=== PATIENT | male | born 1975 | race Two or more races ===

== ENCOUNTER 2021-06-11 09:32 | Emergency (ER) | payer MEDICAID, OTHER ==
[~2021-06-11] VITALS: Ht 170.2 cm; Wt 136.1 kg
[2021-06-11] MEDS ORDERED: NEOMYCIN-BACITRACIN-POLYM UNITDOSE PKG TOP OINT TOP ONE (12:45)
[2021-06-11] MEDS ORDERED: TETANUS-DIPTH-ACEL PERTUSSIS 0.5ML SYR Tdap IM ONE (12:45)
[2021-06-11 13:10] VITALS: BP 127/63
[2021-06-11] MEDS ORDERED: ACETAMINOPHEN/CODEINE#3 (300/30mg) TAB PO ONE (13:15)
[2021-06-11] MEDS ORDERED: ONDANSETRON ODT 4 MG TAB PO ONE (13:15)
== END 2021-06-11 13:27 | disposition home or self-care (01) ==
LOC: ER 09:32
DX: T25.221A Burn of second degree of right foot, initial encounter (principal); X10.2XXA Contact with fats and cooking oils, initial encounter; Y93.89 Activity, other specified; Y92.89 Other specified places as the place of occurrence of the external cause; Y99.8 Other external cause status
CPT/HCPCS: 90471; 90715; 99284; Q0162